=== PATIENT | male | born 1970 | race Two or more races ===

== ENCOUNTER 2021-05-13 09:23 | Emergency (ER) | payer OTHER ==
[~2021-05-13] VITALS: Ht 167.6 cm; Wt 67.1 kg
[2021-05-13] MEDS ORDERED: INTESTINEX680 M2 PO (18:29)
[2021-05-13] MEDS ORDERED: AMOX-CLAV 875-1 EACH PO (18:29)
[2021-05-13] MEDS ORDERED: PEPCID AC20 MG PO (18:29)
== END 2021-05-13 18:53 | disposition home or self-care (01) ==
LOC: ER 09:23
DX: K57.92 Diverticulitis of intestine, part unspecified, without perforation or abscess without bleeding (principal); R10.84 Generalized abdominal pain; E78.00 Pure hypercholesterolemia, unspecified; Z88.6 Allergy status to analgesic agent; Z20.822 Contact with and (suspected) exposure to COVID-19

== ENCOUNTER 2023-02-28 09:30 | Inpatient (IN) | payer OTHER ==
[~2023-02-28] VITALS: Ht 167.6 cm; Wt 65.8 kg
[~2023-02-28 09:30] MED LIST: AMOX-CLAV 875-1 EACH PO; INTESTINEX680 M2 PO; PEPCID AC20 MG PO
[2023-02-28 11:24] LABS: PH,URINE 5.5 (5.0-8.0); URINE APPEARANCE Clear; URINE BILIRRUBIN Negative (NEGATIVE); URINE BLOOD Negative; URINE COLOR Yellow; URINE GLUCOSE Negative (NEGATIVE); URINE LEUKOCYTE Negative; URINE NITRATE Negative; URINE PROTEIN Negative (NEGATIVE); URINE UROBILINOGEN 0.2 E.U./dl
[2023-02-28 11:26] LABS: HEMATOCRIT 40.4 % (39.0-48.0); HEMOGLOBIN 13.4 g/dL (13-16.00); MEAN CELL VOLUME 87.2 fL (80.0-100.00); MEAN CORPUSCULAR HGB CONC 33.3 g/dl (32.0-36.0); PLATELET COUNT 415 K/uL (150-450); RED BLOOD COUNT 4.63 M/uL (4.00-6.00); RED CELL DISTRIBUTION WIDTH 14.3 % (11.5-14.5)
[2023-02-28 11:29] LABS: URINE BACTERIA 1.2 uL (0.0-1933); URINE EPITHELIAL CELLS 0.6 uL (0.0-38.8); URINE WBC 1.6 uL (0.0-23.2)
[2023-02-28 11:47] LABS: INR 0.98; PARTIAL THROMBOPLASTIN TIME 28.6 SECONDS (22.0-34.0); PROTHROMBIN TIME 10.3 SECONDS (9.0-11.5)
[2023-02-28 12:13] LABS: ALBUMIN 4.1 gm/dL (3.4-5.0); BILIRUBIN TOTAL 0.34 mg/dL (0.3-1.2); CALCIUM 10.5 mg/dL (8.5-10.1); CREATININE SERUM 0.98 mg/dL (0.70-1.30); GFR 80.32; GLOBULINA 3.4 G/DL (2.4-3.5); POTASSIUM 5.38 mEq/L (3.5-5.1); TOTAL PROTEIN 7.5 gm/dL (6.4-8.2)
[2023-02-28] MEDS ORDERED: ACID REDUCER20 M1 PO (12:13)
[2023-02-28] MEDS ORDERED: ZETIA10 MG PO (12:14)
[2023-03-04 17:56] LABS: HEMATOCRIT 36.7 % (39.0-48.0); HEMOGLOBIN 12.1 g/dL (13-16.00); MEAN CELL VOLUME 87.4 fL (80.0-100.00); MEAN CORPUSCULAR HEMOGLOBIN 28.9 pg (27.00-32.0); PLATELET COUNT 296 K/uL (150-450); RED CELL DISTRIBUTION WIDTH 14.2 % (11.5-14.5)
[2023-03-04 18:09] LABS: ALBUMIN 3.6 gm/dL (3.4-5.0); CALCIUM 8.8 mg/dL (8.5-10.1); CREATININE SERUM 0.77 mg/dL (0.70-1.30); GFR 106.09; MAGNESIUM 1.7 mg/dL (1.8-2.4); PHOSPHOROUS 3.3 mg/dL (2.5-4.9); POTASSIUM 4.15 mEq/L (3.5-5.1)
[2023-03-05 06:48] LABS: HEMATOCRIT 30.6 % (39.0-48.0); HEMOGLOBIN 10.4 g/dL (13-16.00); MEAN CELL VOLUME 85.7 fL (80.0-100.00); MEAN CORPUSCULAR HEMOGLOBIN 29.2 pg (27.00-32.0); MEAN CORPUSCULAR HGB CONC 34.1 g/dl (32.0-36.0); PLATELET COUNT 288 K/uL (150-450); RED BLOOD COUNT 3.57 M/uL (4.00-6.00); RED CELL DISTRIBUTION WIDTH 14.5 % (11.5-14.5)
[2023-03-05 07:14] LABS: ALBUMIN 3.1 gm/dL (3.4-5.0); CALCIUM 8.9 mg/dL (8.5-10.1); CREATININE SERUM 0.85 mg/dL (0.70-1.30); GFR 94.65; PHOSPHOROUS 3.7 mg/dL (2.5-4.9); POTASSIUM 4.52 mEq/L (3.5-5.1)
[2023-03-06 06:28] LABS: MEAN CELL VOLUME 85.3 fL (80.0-100.00); MEAN CORPUSCULAR HGB CONC 35.3 g/dl (32.0-36.0); PLATELET COUNT 232 K/uL (150-450); RED BLOOD COUNT 2.72 M/uL (4.00-6.00)
[2023-03-06 06:34] LABS: HEMATOCRIT 23.2 % (39.0-48.0); MEAN CORPUSCULAR HEMOGLOBIN 30.1 pg (27.00-32.0)
[2023-03-06 06:35] LABS: HEMOGLOBIN 8.2 g/dL (13-16.00)
[2023-03-06 07:01] LABS: ALBUMIN 2.8 gm/dL (3.4-5.0); CALCIUM 8.5 mg/dL (8.5-10.1); CREATININE SERUM 0.74 mg/dL (0.70-1.30); GFR 111.07; MAGNESIUM 1.9 mg/dL (1.8-2.4); POTASSIUM 4.35 mEq/L (3.5-5.1)
[2023-03-06 07:47] LABS: PHOSPHOROUS 1.8 mg/dL (2.5-4.9)
[2023-03-07 07:19] LABS: ALBUMIN 2.6 gm/dL (3.4-5.0); CALCIUM 8.3 mg/dL (8.5-10.1); CREATININE SERUM 0.8 mg/dL (0.70-1.30); GFR 101.51; MAGNESIUM 1.9 mg/dL (1.8-2.4); PHOSPHOROUS 3.3 mg/dL (2.5-4.9); POTASSIUM 4.13 mEq/L (3.5-5.1)
[2023-03-07 08:17] LABS: MEAN CELL VOLUME 85.7 fL (80.0-100.00); MEAN CORPUSCULAR HEMOGLOBIN 29.3 pg (27.00-32.0); MEAN CORPUSCULAR HGB CONC 34.4 g/dl (32.0-36.0); PLATELET COUNT 220 K/uL (150-450); RED BLOOD COUNT 2.45 M/uL (4.00-6.00)
[2023-03-07 08:20] LABS: HEMOGLOBIN 7.2 g/dL (13-16.00)
[2023-03-07 11:53] LABS: MEAN CELL VOLUME 85.7 fL (80.0-100.00); MEAN CORPUSCULAR HGB CONC 34.4 g/dl (32.0-36.0); PLATELET COUNT 274 K/uL (150-450); RED BLOOD COUNT 2.92 M/uL (4.00-6.00); RED CELL DISTRIBUTION WIDTH 14.4 % (11.5-14.5)
[2023-03-07 11:55] LABS: HEMOGLOBIN 8.6 g/dL (13-16.00); MEAN CORPUSCULAR HEMOGLOBIN 29.4 pg (27.00-32.0)
[2023-03-08 07:06] LABS: MEAN CELL VOLUME 86.6 fL (80.0-100.00); MEAN CORPUSCULAR HGB CONC 34.5 g/dl (32.0-36.0); PLATELET COUNT 242 K/uL (150-450); RED BLOOD COUNT 2.62 M/uL (4.00-6.00); RED CELL DISTRIBUTION WIDTH 13.9 % (11.5-14.5)
[2023-03-08 07:19] LABS: ALBUMIN 2.9 gm/dL (3.4-5.0); CALCIUM 8.9 mg/dL (8.5-10.1); CREATININE SERUM 0.88 mg/dL (0.70-1.30); GFR 90.94; MAGNESIUM 2.1 mg/dL (1.8-2.4); PHOSPHOROUS 3.8 mg/dL (2.5-4.9); POTASSIUM 4.62 mEq/L (3.5-5.1)
[2023-03-08 07:31] LABS: HEMATOCRIT 22.6 % (39.0-48.0); HEMOGLOBIN 7.8 g/dL (13-16.00); MEAN CORPUSCULAR HEMOGLOBIN 29.7 pg (27.00-32.0)
[2023-03-08 16:14] LABS: MEAN CELL VOLUME 87.1 fL (80.0-100.00); MEAN CORPUSCULAR HGB CONC 34.3 g/dl (32.0-36.0); PLATELET COUNT 262 K/uL (150-450); RED BLOOD COUNT 2.65 M/uL (4.00-6.00); RED CELL DISTRIBUTION WIDTH 13.8 % (11.5-14.5)
[2023-03-08 16:15] LABS: HEMATOCRIT 23.1 % (39.0-48.0); MEAN CORPUSCULAR HEMOGLOBIN 29.8 pg (27.00-32.0)
[2023-03-08 16:19] LABS: HEMOGLOBIN 7.9 g/dL (13-16.00)
[2023-03-09 08:26] LABS: HEMATOCRIT 23.9 % (39.0-48.0); MEAN CELL VOLUME 86.5 fL (80.0-100.00); MEAN CORPUSCULAR HGB CONC 35.4 g/dl (32.0-36.0); PLATELET COUNT 298 K/uL (150-450); RED BLOOD COUNT 2.77 M/uL (4.00-6.00); RED CELL DISTRIBUTION WIDTH 13.8 % (11.5-14.5)
[2023-03-09 08:42] LABS: HEMOGLOBIN 8.5 g/dL (13-16.00); MEAN CORPUSCULAR HEMOGLOBIN 30.6 pg (27.00-32.0)
== END 2023-03-09 17:42 | disposition home or self-care (01) | DRG 331 ==
LOC: O/R 03-04 05:28 → SURG 03-04 09:30 → SURH 03-04 13:18
PROVIDERS: ADMIT Colon & Rectal Surgery; ATTEND Colon & Rectal Surgery
PROC: 0DBP4ZZ Excision of Rectum, Percutaneous Endoscopic Approach (ICD-10-PCS; 2023-03-04)
PROC: 0DTN4ZZ Resection of Sigmoid Colon, Percutaneous Endoscopic Approach (ICD-10-PCS; principal; 2023-03-04 11:00)
DX: K57.20 Diverticulitis of large intestine with perforation and abscess without bleeding (principal)

== ENCOUNTER 2024-05-16 11:08 | Emergency (ER) | payer OTHER ==
[~2024-05-16] VITALS: Ht 165.1 cm; Wt 68.0 kg
[~2024-05-16 11:08] MED LIST changes: +ACID REDUCER20 M1 PO; +ZETIA10 MG PO
[2024-05-16 13:32] LABS: HEMATOCRIT 43.2 % (39.0-48.0); HEMOGLOBIN 14.2 g/dL (13-16.00); MEAN CELL VOLUME 87.9 fL (80.0-100.00); MEAN CORPUSCULAR HEMOGLOBIN 28.9 pg (27.00-32.0); MEAN CORPUSCULAR HGB CONC 32.9 g/dl (32.0-36.0); PLATELET COUNT 275 K/uL (150-450); RED BLOOD COUNT 4.92 M/uL (4.00-6.00); RED CELL DISTRIBUTION WIDTH 14.1 % (11.5-14.5)
[2024-05-16 13:50] LABS: CREATININE SERUM 1.11 mg/dL (0.70-1.30); GFR 69.03; POTASSIUM 3.98 mEq/L (3.5-5.1)
[2024-05-16] MEDS ORDERED: CEFTRIAXONE SODIUM 1,000 MG VIAL IM ONE (16:00)
[2024-05-16] MEDS ORDERED: METHYLPREDNISOLONE SOD SUCC 125 MG VIAL IM ONE (16:00)
[2024-05-16] MEDS ORDERED: METHYLPREDNISOLONE SOD SUCC 125 MG VIAL ONE (16:17)
[2024-05-16] MEDS ORDERED: CEFTRIAXONE SODIUM 1,000 MG VIAL ONE (16:17)
== END 2024-05-16 16:25 | disposition home or self-care (01) ==
LOC: ER 11:11
PROVIDERS: General Practice
DX: L98.8 Other specified disorders of the skin and subcutaneous tissue (principal); Z88.6 Allergy status to analgesic agent; K21.9 Gastro-esophageal reflux disease without esophagitis; K57.30 Diverticulosis of large intestine without perforation or abscess without bleeding; J32.9 Chronic sinusitis, unspecified; E78.00 Pure hypercholesterolemia, unspecified